=== PATIENT | female | born 1985 | race Caucasian/White ===

== ENCOUNTER 2021-10-23 18:44 | Emergency (ER) | payer BC ==
[~2021-10-23] VITALS: Ht 165 cm; Wt 101.0 kg
[~2021-10-23 18:44] MED LIST: CEPH250C PO; CHOL500014 PO; Calcium Carbonate PO; Oxycodone Hcl/Acetaminophen PO; SENN1TAB76 PO
--- NOTE | 2021-10-23 19:09 | ED Lower Extremity ---
General Chief Complaint: Lower Extremity Stated Complaint: R FOOT PAIN Source: patient History of Present Illness Date Seen by Provider: Oct 23, 2021 Time Seen by Provider: 18:59 Initial Comments 35-year-old female presenting with complaints of right foot pain from her heel primarily. She states this is been going on for over a month but she feels like it has been worse in the last few days. She has been trying to take ibuprofen for it with little to no improvement. She was worried because her dad had some issues with his Achilles tendon and she was not sure if that was part of her pain. She has no pain over the Achilles tendon. She works standing on her feet at [employer] and works 10-hour shifts. She has not tried to get in with her primary care provider or be seen about this prior to tonight. She denies any acute trauma or injury. Onset: other (over a month) Severity: severe Pain/Injury Location: right foot, right heel Method of Injury: unknown Modifying Factors: Worse With Movement (bearing weight) Allergies and Home Medications Allergies Coded Allergies: No Known Drug Allergies (Unverified , 07/22/14) Patient Home Medication List Home Medication List Reviewed: Yes Cephalexin Monohydrate (Cephalexin) 250 Mg Cap, 500 MG PO QID Prescribed by: YASMANI DANIELLE on 08/02/141412 Cholecalciferol (Vitamin D3 Capsule) 5,000 Unit Capsule, 5,000 UNIT PO DAILY Prescribed by: YASMANI DANIELLE on 08/02/14 141 Prednisone (Prednisone) 20 Mg Tab, 60 MG PO DAILY Prescribed by: GILMA DELEON on 10/23/212107 Senna (Senokot S Tablet) 1 Ea Tablet, 1 EA PO BID Prescribed by: YASMANI DANIELLE on 08/02/14 141 [Calcium Carbonate] 600 MG TAB, 600 MG PO TIDWM Prescribed by: YASMANI DANIELLE on 08/02/14 141 [Oxycodone Hcl/Acetaminophen] 1 TAB TABLET, 1 TAB PO Q4H PRN for PAIN Prescribed by: YASMANI DANIELLE on 08/02/14 141 Review of Systems Constitutional: No chills, No fever EENTM: no symptoms reported Respiratory: no symptoms reported Cardiovascular: no symptoms reported Gastrointestinal: no symptoms reported Genitourinary: no symptoms reported Musculoskeletal: see HPI Skin: see HPI Psychiatric/Neurological: No Symptoms Reported Past Wfhcdpz-Mhtzqa-Ppskdw Hx Past Medical History Reproductive Disorders: No Adverse Reaction/Blood Tranf: No Family Medical History Cardiac Stents 19 MOTHER FH: non-Hodgkin's lymphoma 19 FATHER ( at an early age.) Hypercholesterolemia 19 MOTHER Hypertension 19 MOTHER Myocardial infarction 19 MOTHER Physical Exam Vital Signs Vital Signs - First Documented 10/23/21 19:00 Temp 36.6 Pulse 95 Resp 18 B/P (MAP) 134/102 (113) Pulse Ox 99 O2 Delivery Room Air Capillary Refill : Height, Weight, BMI Height: 5'10.00" Weight: 201lbs. 1.0oz. 91.261261vg; BMI Method: General Appearance: WD/WN, no apparent distress Cardiovascular: normal peripheral pulses Progress/Results/Core Measures Results/Orders My Orders Orders - GILMA DELEON MD Foot 3 View Right (10/23/21 19:28) Prednisone Tablet (Deltasone Tablet) (10/23/21 21:04) Vital Signs/I&O 10/23/21 10/23/21 19:00 21:15 Temp 36.6 36.6 Pulse 95 95 Resp 18 18 B/P (MAP) 134/102 (113) 134/102 Pulse Ox 99 99 O2 Delivery Room Air Room Air Progress Progress Note #1: Progress Note check xrays to look for heel spur or acute bony abnormality. Progress Note #2: Progress Note No acute bony abnormality to account for her pain in the foot. We will try treating with steroid for a week and have her use insoles with arch support to see if that helps. 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 TECHNIQUE: 3 nonweightbearing views of the right foot FINDINGS: Normal osseous demineralization. No osseous tarsal coalition. No fracture or erosions. A small os peroneum is present. Bipartite medial and lateral hallux sesamoids. The Achilles shadow is normal in appearance. No radiographic features of a calcaneal stress fracture. IMPRESSION: No osseous structural abnormality to account for the patient's pain. Dictated by: Dictated on workstation # [id number] Dict: 10/23/211940 Trans: 10/23/211947 [facility] [id number] Interpreted by: RAMANA RINALDI MD Electronically signed by: RAMANA RINALDI MD 10/23/211947 Reviewed: Reviewed by Me Departure Impression Primary Impression: Intractable right heel pain Disposition: HOME, SELF-CARE Condition: Stable Departure-Patient Inst. Decision time for Depature: 21:05 Referrals: MARVIN WEBBER MD (PCP) Primary Care Physician NO,LOCAL PHYSICIAN (Family) Primary Care Physician Patient Instructions: Muscle and Bone Pain (DC) Add. Discharge Instructions: Take the Prednisone to help with inflammation and pain in the foot and heel. Use a supportive insert for your shoes that gives you support for your arch as well. 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 Voiced understanding. Scripts Prednisone (Prednisone) 20 Mg Tab 60 MG PO DAILY for Heel Pain/Inflammation for 6 Days, #18 TAB 0 Refills Prov: GILMA DELEON MD 10/23/21 Work/School Note: Work Release Form Date Seen in the Emergency Department: Oct 23, 2021 Return to Work: Oct 24, 2021 Restrictions: Need Release from Doctor Other Restrictions Listed Below: Limit duty based on pain for next week. GILMA DELEON MD Oct 23, 2021 19:09
--- NOTE | 2021-10-23 19:45 | Diagnostic Imaging Report ---
FOOT 3 VIEW RIGHT INDICATION: Heel pain without injury COMPARISON: None available. TECHNIQUE: 3 nonweightbearing views of the right foot FINDINGS: Normal osseous demineralization. No osseous tarsal coalition. No fracture or erosions. A small os peroneum is present. Bipartite medial and lateral hallux sesamoids. The Achilles shadow is normal in appearance. No radiographic features of a calcaneal stress fracture. IMPRESSION: No osseous structural abnormality to account for the patient's pain. Dictated by: Dictated on workstation # [id number]
[2021-10-23] MEDS ORDERED: predniSONE 20 MG TAB PO STA (21:04)
[2021-10-23] MEDS ORDERED: PRD20T PO (21:08)
[2021-10-23 21:15] VITALS: BP 134/102
== END 2021-10-23 21:15 | disposition home or self-care (01) ==
LOC: EDUNIT# 18:44 → ER FS 18:46
DX: M79.671 Pain in right foot (principal)
CPT/HCPCS: 73630

== ENCOUNTER 2022-11-29 19:26 | Emergency (ER) | payer BC ==
[~2022-11-29] VITALS: Ht 167.7 cm; Wt 107.6 kg
[~2022-11-29 19:26] MED LIST changes: +PRD20T PO
[2022-11-29 19:35] VITALS: BP 140/83
--- NOTE | 2022-11-29 19:53 | ED Lower Extremity ---
General Chief Complaint: Lower Extremity Stated Complaint: LT ANKLE INJ AND SWOLLEN Nursing Triage Note: Patient c/o Lt. ankle pain with swelling x 4 days. Patient states she stepped in a "drop" outside while walking her dog on Saturday. Patient states she felt a pop. Patient states she has been able to walk on it, but states certain movements are painful. Source: patient Exam Limitations: no limitations (SIRIA SMITH APRN) History of Present Illness Date Seen by Provider: Nov 29, 2022 Time Seen by Provider: 19:42 Initial Comments 37-year-old female presents to the ER with complaint of left ankle pain and swelling since Saturday evening, 11/25/2022. She states that she was walking her dog, and stepped in to a hole, and her ankle twisted inward. She states that she has been elevating it, icing it, and taking ibuprofen with minimal relief. She states that she is concerned because the swelling has not improved. She reports pain with certain movements. She states that she has been able to walk on it. (SIRIA SMITH APRN) Allergies and Home Medications Allergies Coded Allergies: No Known Drug Allergies (Unverified , 07/22/14) Patient Home Medication List Home Medication List Reviewed: Yes (SIRIA SMITH APRN) Cephalexin Monohydrate (Cephalexin) 250 Mg Cap, 500 MG PO QID Prescribed by: YASMANI DANIELLE on 08/02/141412 Cholecalciferol (Vitamin D3 Capsule) 5,000 Unit Capsule, 5,000 UNIT PO DAILY Prescribed by: YASMANI DANIELLE on 08/02/14 141 Prednisone (Prednisone) 20 Mg Tab, 60 MG PO DAILY Prescribed by: GILMA DELEON on 10/23/212107 Senna (Senokot S Tablet) 1 Ea Tablet, 1 EA PO BID Prescribed by: YASMANI DANIELLE on 08/02/14 141 [Calcium Carbonate] 600 MG TAB, 600 MG PO TIDWM Prescribed by: YASMANI DANIELLE on 08/02/14 141 [Oxycodone Hcl/Acetaminophen] 1 TAB TABLET, 1 TAB PO Q4H PRN for PAIN Prescribed by: YASMANI DANIELLE on 08/02/14 141 Review of Systems Constitutional: see HPI (SIRIA SMITH APRN) Past Loiysgd-Usvwuq-Oxkyer Hx Patient Social History Tobacco Use?: No Smoking Status: Former Smoker Use of E-Cig and/or Vaping dev: No Substance use?: No Alcohol Use?: No Pt feels they are or have been: No (SIRIA SMITH APRN) Immunizations Up To Date Influenza Vaccine Up-to-Date: No; Not Current First/Initial COVID19 Vaccinat: Moderna Second COVID19 Vaccination Warren: Moderna (SIRIA SMITH APRN) Past Medical History Last Menstrual Period: Oct 30, 2022 Reproductive Disorders: No Adverse Reaction/Blood Tranf: No (SIRIA SMITH APRN) Family Medical History Cardiac Stents 19 MOTHER FH: non-Hodgkin's lymphoma 19 FATHER ( at an early age.) Hypercholesterolemia 19 MOTHER Hypertension 19 MOTHER Myocardial infarction 19 MOTHER Physical Exam Vital Signs Vital Signs - First Documented 11/29/22 19:35 Temp 36.8 Pulse 75 Resp 14 B/P (MAP) 140/83 (102) O2 Delivery Room Air (JYOTSNA,LEOLA K DO) Vital Signs Capillary Refill : (SIRIA SMITH APRN) Height, Weight, BMI Height: 5'10.00" Weight: 201lbs. 1.0oz. 91.069596am; 38.00 BMI Method: General Appearance: WD/WN, no apparent distress Neck: supple, normal inspection Cardiovascular: regular rate, rhythm Respiratory: lungs clear, normal breath sounds, no respiratory distress, no accessory muscle use Ankles: left ankle pain, left ankle soft tissue tenderness, left ankle swelling Feet: left foot other (Cap refill less than 2 seconds, sensation intact distally, pulses intact) Neurologic/Psychiatric: alert, normal mood/affect Skin: normal color, warm/dry (SIRIA SMITH APRN) Progress/Results/Core Measures Results/Orders Vital Signs/I&O 11/29/22 19:35 Temp 36.8 Pulse 75 Resp 14 B/P (MAP) 140/83 (102) O2 Delivery Room Air (JYOTSNA,LEOLA K DO) Blood Pressure Mean: 102 Progress Progress Note : Progress Note Patient seen and evaluated, resting comfortably in recliner, no acute distress. Based on exam and symptoms, x-ray of left ankle ordered. 2020 x-ray reviewed. Negative for acute fracture. Results discussed with patient. Will discharge with Zack bandage. Patient declined crutches because she works at home, and can stay off of the ankle. Discharge instructions and return precautions provided. (SIRIA SMITH APRN) Diagnostic Imaging Diagonstic Imaging: Xray Plain Films/CT/US/NM/MRI: ankle Comments [facility]. [place], [place] NAME: YOKASTA BARBOUR REC#: [id number] PT STATUS: REG ER : 1985 PHYSICIAN: SIRIA SMITH APRN ADMIT DATE: 11/29/22/ER Signed Date of Exam:11/29/22 ANKLE, LEFT, 3 VIEWS INDICATION: Left ankle pain and swelling. FINDINGS: There is ankle soft tissue swelling greatest along the lateral aspect of the ankle. There are no findings of cortical disruption of the distal tibia or fibula. There is no widening of the ankle mortise. The talar dome is normal in morphology. The visualized portion of the foot is unremarkable. IMPRESSION: 1. Left ankle soft tissue swelling without findings of fracture or malalignment. Dictated by: Dictated on workstation # [id number] Dict: 11/29/222000 Trans: 11/29/222006 CV [id number] Interpreted by: OBINNA BINGHAM MD Electronically signed by: OBINNA BINGHAM MD 11/29/222006 (SIRIA SMITH APRN) Departure Impression Primary Impression: Sprain and strain of ankle Disposition: 01 HOME, SELF-CARE Condition: Stable Departure-Patient Inst. Decision time for Depature: 20:21 (SIRIA SMITH APRN) Referrals: MARVIN WEBBER MD (PCP) Primary Care Physician NO,LOCAL PHYSICIAN (Family) Primary Care Physician Patient Instructions: Ankle Sprain (DC) Add. Discharge Instructions: Wear the Zack bandage for compression. Stay off the ankle is much as possible. Apply ice to the ankle 20 minutes at a time several times a day. Take 800 mg of ibuprofen every 8 hours with food as needed for pain. You may also take 1000 mg of Tylenol every 8 hours as needed for pain. Follow-up with your primary care provider if symptoms are not improving. Return for any new, concerning, or worsening symptoms. All discharge instructions reviewed with patient and/or family. Voiced understanding. ATTENDING PHYSICIAN NOTE: I WAS PHYSICALLY PRESENT ER PHYSICIAN, BUT I WAS NOT INVOLVED IN ANY DECISION MAKING OR ANY CARE OF THIS PATIENT AND I AM NOT COLLABORATING PHYSICIAN. (LEOLA GOYAL DO) Copy Copies To 1: MARVIN WEBBER MD, BRITTANY R APRN Nov 29, 2022 19:53 LEOLA GOYAL DO Dec 03, 2022 07:19
--- NOTE | 2022-11-29 20:06 | Diagnostic Imaging Report ---
INDICATION: Left ankle pain and swelling. FINDINGS: There is ankle soft tissue swelling greatest along the lateral aspect of the ankle. There are no findings of cortical disruption of the distal tibia or fibula. There is no widening of the ankle mortise. The talar dome is normal in morphology. The visualized portion of the foot is unremarkable. IMPRESSION: 1. Left ankle soft tissue swelling without findings of fracture or malalignment. Dictated by: Dictated on workstation # [id number]
[2022-11-29] MEDS ORDERED: LIDOCAINE 1% INJ 10 ML VIAL ONE (20:25)
== END 2022-11-29 20:30 | disposition home or self-care (01) ==
LOC: EDUNIT# 19:26 → ER 19:31
DX: S93.402A Sprain of unspecified ligament of left ankle, initial encounter (principal); S96.912A Strain of unspecified muscle and tendon at ankle and foot level, left foot, initial encounter; Z87.891 Personal history of nicotine dependence; X50.1XXA Overexertion from prolonged static or awkward postures, initial encounter; Y93.K1 Activity, walking an animal
CPT/HCPCS: 73610

== ENCOUNTER 2022-12-04 05:32 | Emergency (ER) | payer BC ==
[~2022-12-04] VITALS: Ht 167.7 cm; Wt 107.2 kg
[2022-12-04] MEDS ORDERED: RX-TOBRAMYCIN (TOBREX) 0.3% OP OINT 3.5 GM TUBE OU STA (05:49)
--- NOTE | 2022-12-04 06:00 | ED EENT ---
History of Present Illness General Chief Complaint: Eye Problems Stated Complaint: PINK EYE| RIGHT EYE Source: patient History of Present Illness Date Seen by Provider: Dec 04, 2022 Time Seen by Provider: 05:36 Initial Comments 37-year-old female presenting with complaints of waking up with her right eye swollen and matted shut with pus. She had noticed that her eye was feeling a little irritated yesterday and she thought she was having some seasonal allergies affecting her. However when she woke up this morning her eyelids were swollen and she could not open her eye completely. She had a lot of crusting drainage and matted her eyes shut. She was able to get that off with a warm wash rag. She is able to see from the eye when she can get the eyelids open. She has no allergies to medicines as far as she knows. No ill contacts. She denies anything getting in her eye or being around any chemicals that might have irritated her eye. Timing/Duration: abrupt Severity: moderate Location: eye (R) Associated Symptoms: No change in hearing, No cough, No drooling, No ear drainage; facial pain/swelling (right eye); No fever, No malaise, No nasal congestion/drainage, No poor fluid intake, No poor solids intake, No sinus infection, No sore throat, No tooth pain, No voice change Allergies and Home Medications Allergies Coded Allergies: No Known Drug Allergies (Unverified , 07/22/14) Patient Home Medication List Home Medication List Reviewed: Yes Discontinued Medications Cephalexin Monohydrate (Cephalexin) 250 Mg Cap, 500 MG PO QID Discontinued Reason: Referral/FU Appt-Addtl Prescribed by: YASMANI DANIELLE on 08/02/141412 Last Action: Discontinued Cholecalciferol (Vitamin D3 Capsule) 5,000 Unit Capsule, 5,000 UNIT PO DAILY Discontinued Reason: Referral/FU Appt-Addtl Prescribed by: YASMANI DANIELLE on 08/02/141412 Last Action: Discontinued Prednisone (Prednisone) 20 Mg Tab, 60 MG PO DAILY Discontinued Reason: Referral/FU Appt-Addtl Prescribed by: GILMA DELEON on 10/23/212107 Last Action: Discontinued Senna (Senokot S Tablet) 1 Ea Tablet, 1 EA PO BID Discontinued Reason: Referral/FU Appt-Addtl Prescribed by: YASMANI DANIELLE on 08/02/141412 Last Action: Discontinued [Calcium Carbonate] 600 MG TAB, 600 MG PO TIDWM Discontinued Reason: Referral/FU Appt-Addtl Prescribed by: YASMANI DANIELLE on 08/02/141412 Last Action: Discontinued [Oxycodone Hcl/Acetaminophen] 1 TAB TABLET, 1 TAB PO Q4H PRN for PAIN Discontinued Reason: Referral/FU Appt-Addtl Prescribed by: YASMANI DANIELLE on 08/02/141412 Last Action: Discontinued Review of Systems Review of Systems Constitutional: No chills, No fever Eyes: Blurred Vision (due to tears and drainage from right eye); Denies Foreign Body Sensation; Inflammation, Pain (feels sore and irritated in right eye); Denies Photophobia Ears: No Symptoms Reported Nose: no symptoms reported Mouth: no symptoms reported Throat: no symptoms reported Respiratory: no symptoms reported Cardiovascular: no symptoms reported Gastrointestinal: no symptoms reported Musculoskeletal: no symptoms reported Past Wizlimx-Hsrzxj-Gvkumn Hx Immunizations Up To Date First/Initial COVID19 Vaccinat: Moderna Second COVID19 Vaccination Warren: Karmen Past Medical History Reproductive Disorders: No Adverse Reaction/Blood Tranf: No Family Medical History Cardiac Stents 19 MOTHER FH: non-Hodgkin's lymphoma 19 FATHER ( at an early age.) Hypercholesterolemia 19 MOTHER Hypertension 19 MOTHER Myocardial infarction 19 MOTHER Physical Exam Vital Signs Vital Signs - First Documented 12/04/22 05:35 Temp 36.5 Pulse 72 Resp 16 B/P (MAP) 133/89 (104) Pulse Ox 99 O2 Delivery Room Air Height, Weight, BMI Height: 5'10.00" Weight: 201lbs. 1.0oz. 91.026651ny; 38.00 BMI Method: General Appearance: WD/WN, no apparent distress Eyes: right eye conjunctival inflammation (chemosis right eye), right eye lid inflammation, right eye other (erythema to right eye conjunctiva with chemosis of lateral aspect of eye. eyelids are also swollen with some erythema. 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 Counseled to keep head elevated 30 to 45 degrees at all times for the next few days. Use ice pack 15 to 20 minutes every few hours as needed to help with swelling and pain. She could alternate with heat to help clean the crusty drainage from the eyelids. Use tobramycin antibiotic on ointment 3 times a day to help treat for possible bacterial infection. Follow a good hand hygiene to help try and prevent spreading of the infection. If not seeing improvement over the next 48 to 72 hours she should check with an actual eye doctor and given information for Dr. Sanchez here in [place] but counseled that she could see however she likes and might check with her insurance to see if they cover certain eye provider. Given an ice pack here to start helping with swelling and pain. Counseled on follow-up and return precautions. Departure Impression Primary Impression: Conjunctivitis, acute, right eye Qualified Codes: H10.31 - Unspecified acute conjunctivitis, right eye Additional Impression: Chemosis of right conjunctiva Disposition: 01 HOME, SELF-CARE Condition: Stable Departure-Patient Inst. Decision time for Depature: 05:56 Referrals: MARVIN WEBBER MD (PCP/Family) Primary Care Physician Patient Instructions: Conjunctivitis ([facility]) ED, How to Use Eye Drops and Eye Ointment ED Add. Discharge Instructions: Use a cold pack or ice pack for 10-15 minutes every few hours as needed to help with swelling and pain. Use the antibiotic ointment 3 times a day to the right eye. Apply a thin ribbon of the ointment to your inside of the eyelid and then blink to help the ointment spread across your eye. Try to keep your head elevated at least 30-45 degrees at all times over the next few days to help limit the swelling. You may alternate the ice with heat to help clean or clear the drainage and crusting away. Follow good hand hygiene to help prevent spreading of infection to others. If not having improvement in the next 48-72 hours or if worsening check with an eye doctor. One option for an eye doctor is Dr. Sanchez here in [place] at [address] His office number is [phone] All discharge instructions reviewed with patient and/or family. Voiced understanding. Work/School Note: Work Release Form Date Seen in the Emergency Department: Dec 04, 2022 Return to Work: Dec 04, 2022 Restrictions: Return-No Fever (24hrs) Other Restrictions Listed Below: Please excuse from work in case she can not see well x 3 days GILMA DELEON MD Dec 04, 2022 06:00
[2022-12-04 06:10] VITALS: BP 133/89
== END 2022-12-04 06:10 | disposition home or self-care (01) ==
LOC: EDUNIT# 05:32 → ER FS 05:34
DX: H10.31 Unspecified acute conjunctivitis, right eye (principal); H11.421 Conjunctival edema, right eye
CPT/HCPCS: 99281